=== PATIENT | female | born 1985 | race Caucasian/White ===

== ENCOUNTER 2020-02-18 21:48 | Emergency (ER) | payer SELFPAY ==
[~2020-02-18] VITALS: Ht 152.4 cm; Wt 50.0 kg
[2020-02-18 22:07] VITALS: BP 149/109
[2020-02-18] MEDS ORDERED: DOXY100C14 PO (22:18)
--- NOTE | 2020-02-18 22:20 | PHYS DOC ---
General Adult EDM: Chief Complaint: ABSCESS HPI: HPI: Patient is a 35 year old female who presents with complaint of tender, swollen area on the right side of her back that has been present for the last 6 days. Patient states that she believes she was bitten by something and had Betapaste with sodium bicarbonate to try and [place] poison. She states that is just not getting better and the swelling is getting worse. She denies any drainage. Patient has had no fever. [] Review of Systems: Review of Systems: Constitutional: Denies fever or chills. [] Respiratory: Denies cough or shortness of breath. [] Cardiovascular: Denies chest pain or edema. [] Integument: Positive tender, swollen area. [] Neurologic: Denies headache, focal weakness or sensory changes. [] Heart Score: Risk Factors: Risk Factors: DM, Current or recent (<one month) smoker, HTN, HLP, family history of CAD, obesity. Risk Scores: Score 0 - 3: 2.5% MACE over next 6 weeks - Discharge Home Score 4 - 6: 20.3% MACE over next 6 weeks - Admit for Clinical Observation Score 7 - 10: 72.7% MACE over next 6 weeks - Early Invasive Strategies Physical Exam: PE: Constitutional: Well developed, well nourished, no acute distress, non-toxic appearance. [] Cardiovascular: Regular rate and rhythm [] Lungs & Thorax: Bilateral breath sounds clear to auscultation [] Skin: Right side lower back and region of thoracolumbar junction, demonstrates red, indurated and tender, raised lesion with no fluctuance. [] Neurologic: Alert and oriented X 3, no focal deficits noted. [] Current Patient Data: Vital Signs: Vital Signs Date Time Temp Pulse Resp B/P (MAP) Pulse Ox O2 Delivery O2 Flow Rate FiO2 02/18/20 22:07 98.1 100 18 149/109 (122) 97 98.1 EKG: EKG: [] Radiology/Procedures: Radiology/Procedures: [] Course & Med Decision Making: Course & Med Decision Making Pertinent Labs and Imaging studies reviewed. (See chart for details) After skin lesion evaluated, patient was offered incision and drainage versus treatment with antibiotics initially. Patient elected for no incision and drainage, given that there was no fluctuance. Patient will be started on doxycycline. Dragon Disclaimer: Dragon Disclaimer: This electronic medical record was generated, in whole or in part, using a voice recognition dictation system. Departure Departure Impression: Primary Impression: Abscess Disposition: 01 HOME, SELF-CARE Condition: STABLE Referrals: NO PCP (PCP) Patient Instructions: Abscess Scripts Doxycycline Monohydrate (DOXYCYCLINE MONOHYDRATE) 100 Mg Capsule 1 CAP PO BID, #20 CAP Prov: INDERJIT CHARLES Jr. DO 02/18/20 Justicifation of Admission Dx: Justifications for Admission: Justification of Admission Dx: Comment: (Not applicable) INDERJIT CHARLES Jr. DO Feb 18, 2020 22:20
[2020-02-18] MEDS ORDERED: DOXYCYCLINE HYCLATE 100 MG TABLET PO ONE (22:30)
== END 2020-02-18 22:30 | disposition home or self-care (01) ==
LOC: ER 21:48
DX: L02.212 Cutaneous abscess of back [any part, except buttock and flank] (principal)
CPT/HCPCS: 99283